=== PATIENT | male | born 1965 | race Two or more races ===

== ENCOUNTER 2019-02-11 20:10 | Emergency (ER) | payer MEDICAID ==
[~2019-02-11] VITALS: Ht 170.2 cm; Wt 63.7 kg
[2019-02-11] MEDS ORDERED: IBUPROFEN 600 MG TAB PO ONE (21:15)
[2019-02-11 21:46] LABS: Basophils # (auto) 0.1 uL; Basophils % (auto) 0.4 % (0.0-2.0); Eosinophils # (auto) 1.1 uL; Eosinophils % (auto) 7.7 % (0.0-7.0); Hematocrit 27.9 % (41.0-53.0); Hemoglobin 9.5 g/dL (13.5-17.5); Lymphocytes # (auto) 0.7 uL; Lymphocytes % (auto) 5.2 % (10.0-50.0); Mean Corpuscular Hemoglobin 29.3 pg (28.0-32.0); Mean Corpuscular Volume 86.3 fL (80.0-100.0); Monocytes # (auto) 0.9 uL; Monocytes % (auto) 6.3 % (0.0-12.0); Neutrophils # (auto) 11.1 uL; Neutrophils % (auto) 80.4 % (37.0-80.0); Platelet Count (auto) 301 10^3/uL (140-450); Red Blood Cells 3.24 10^6/uL (4.5-5.90); Red Cell Distribution Width 12.8 % (11.8-14.3); White Blood Cell 13.9 10^3/uL (4.4-10.8)
[2019-02-11 22:00] LABS: Albumin 2.4 g/dL (3.4-5.0); Anion Gap 8 (5-15); BUN/Creatinine Ratio 12.7; Blood Urea Nitrogen 30 mg/dL (7-18); Calcium 7.4 mg/dL (8.5-10.1); Carbon Dioxide 22 mmol/L (21-32); Chloride 99 mmol/L (98-107); GFR African American 37 mL/min; GFR Non-African American 30 mL/min; Glucose 159 mg/dL (74-106); Sodium 129 mmol/L (136-145)
[2019-02-11 22:05] LABS: Alanine Aminotransferase 20 U/L (16-61); Alkaline Phosphatase 95 U/L (45-117); Aspartate Aminotransferase 15 U/L (15-37); Bilirubin, Total 0.3 mg/dL (0.2-1.0); Total Protein 7.4 g/dL (6.4-8.2)
[2019-02-12] MEDS ORDERED: VANCOMYCIN 1GM/250ML 250 ML IV ONE (02:30)
[2019-02-12] MEDS ORDERED: PIPERACILLIN-TAZOB 3.375GM 100 ML IV ONE (02:30)
[2019-02-12 07:30] VITALS: BP 150/69
== END 2019-02-12 07:55 | disposition short-term general hospital (02) ==
LOC: ER 20:24
DX: L03.116 Cellulitis of left lower limb (principal); E11.52 Type 2 diabetes mellitus with diabetic peripheral angiopathy with gangrene; I96 Gangrene, not elsewhere classified; E11.65 Type 2 diabetes mellitus with hyperglycemia; D72.829 Elevated white blood cell count, unspecified; N28.9 Disorder of kidney and ureter, unspecified; I10 Essential (primary) hypertension
CPT/HCPCS: 36415; 71045; 73700; 80053; 82962; 83605; 84484; 85025; 87040; 87077; 87186; 93005; 96365; 96367; 99285; J2543; J3370; J7030

== ENCOUNTER 2019-03-07 14:57 | Emergency (ER) | payer MEDICAID ==
[~2019-03-07] VITALS: Ht 170.2 cm; Wt 84.4 kg
[2019-03-07 15:13] VITALS: BP 167/85
[2019-03-07] MEDS ORDERED: LIDOCAINE 1% HCL (LOCAL ANESTH.) INJ 20ML MDV IJ ONE (17:00)
== END 2019-03-07 17:41 | disposition home or self-care (01) ==
LOC: ER 14:57
DX: S61.411A Laceration without foreign body of right hand, initial encounter (principal); S51.811A Laceration without foreign body of right forearm, initial encounter; E11.9 Type 2 diabetes mellitus without complications; I10 Essential (primary) hypertension; W54.0XXA Bitten by dog, initial encounter; Y93.89 Activity, other specified; Y92.89 Other specified places as the place of occurrence of the external cause; Y99.8 Other external cause status
CPT/HCPCS: 12004; 73090; 73130; 99284; J2001

== ENCOUNTER 2019-03-10 11:37 | Emergency (ER) | payer MEDICAID ==
[~2019-03-10] VITALS: Ht 170.2 cm; Wt 85.3 kg
[2019-03-10] MEDS ORDERED: KETOROLAC TROMETH 60MG/2ML VIAL IM ONE (15:00)
[2019-03-10] MEDS ORDERED: METHOCARBAMOL 500 MG TAB PO ONE (15:00)
[2019-03-10 15:31] VITALS: BP 144/87
== END 2019-03-10 15:31 | disposition home or self-care (01) ==
LOC: ER 11:37
DX: S61.411D Laceration without foreign body of right hand, subsequent encounter (principal); E11.9 Type 2 diabetes mellitus without complications; I10 Essential (primary) hypertension; W54.0XXD Bitten by dog, subsequent encounter

== ENCOUNTER 2019-03-23 14:31 | Emergency (ER) | payer MEDICAID ==
[~2019-03-23] VITALS: Ht 170.2 cm; Wt 81.6 kg
[2019-03-23 16:36] VITALS: BP 147/77
[2019-03-23] MEDS ORDERED: BACITRACIN TOP OINT 1 UD PKG TOP ONE (16:42)
[2019-03-23] MEDS ORDERED: BACITRACIN INJ 50000 UNIT VIAL TOP ONE (16:45)
== END 2019-03-23 17:01 | disposition home or self-care (01) ==
LOC: ER 14:36
DX: L03.113 Cellulitis of right upper limb (principal); E11.9 Type 2 diabetes mellitus without complications; I10 Essential (primary) hypertension; Z48.02 Encounter for removal of sutures

== ENCOUNTER 2020-10-18 16:14 | Emergency (ER) | payer MEDICAID ==
[~2020-10-18] VITALS: Ht 170.2 cm; Wt 85.3 kg
[2020-10-18 18:25] LABS: Hematocrit 32.4 % (41.0-53.0); Hemoglobin 11.2 g/dL (13.5-17.5); Mean Corpuscular Hemoglobin 29.5 pg (28.0-32.0); Mean Corpuscular Hgb Conc. 34.7 g/dL (32.0-36.0); Mean Corpuscular Volume 85.3 fL (80.0-100.0); Platelet Count (auto) 186 10^3/uL (140-450); Red Cell Distribution Width 14.6 % (11.8-14.3); White Blood Cell 10.6 10^3/uL (4.4-10.8)
[2020-10-18 18:41] LABS: Albumin 3.2 g/dL (3.4-5.0); Calcium 8.5 mg/dL (8.5-10.1); Potassium 4.1 mmol/L (3.5-5.1)
[2020-10-18 18:43] LABS: BUN/Creatinine Ratio 17.9
[2020-10-18 18:48] LABS: Basophils % (manual) 0 (0.0-2.0); Blast Cells 0; Metamyelocytes % 0; Promyelocytes % 0; Reactive Lymphocytes 0
[2020-10-18 18:54] LABS: Bilirubin, Total 0.3 mg/dL (0.2-1.0); Total Protein 7.5 g/dL (6.4-8.2)
[2020-10-18 19:42] LABS: Band Neutrophils % (manual) 2; Eosinophils % (manual) 28 (0-7); Lymphocytes % (manual) 15 (10.0-50.0); Monocytes % (manual) 5 (0-12); Myelocytes % 1
[2020-10-18 20:00] VITALS: BP 169/85
== END 2020-10-18 20:06 | disposition home or self-care (01) ==
LOC: ER 16:14
DX: L03.115 Cellulitis of right lower limb (principal); E11.22 Type 2 diabetes mellitus with diabetic chronic kidney disease; I12.9 Hypertensive chronic kidney disease with stage 1 through stage 4 chronic kidney disease, or unspecified chronic kidney disease; N18.9 Chronic kidney disease, unspecified
CPT/HCPCS: 36415; 73700; 80053; 85007; 85027; 85049

== ENCOUNTER 2021-04-24 13:12 | Inpatient (IN) | payer MEDICAID ==
[~2021-04-24] VITALS: Ht 170.2 cm; Wt 80.4 kg
[2021-04-24 13:47] LABS: Hematocrit 31.1 % (41.0-53.0); Hemoglobin 10.6 g/dL (13.5-17.5); Mean Corpuscular Hemoglobin 28.4 pg (28.0-32.0); Mean Corpuscular Hgb Conc. 33.9 g/dL (32.0-36.0); Mean Corpuscular Volume 83.7 fL (80.0-100.0); Red Blood Cells 3.72 10^6/uL (4.5-5.90); Red Cell Distribution Width 13.6 % (11.8-14.3); White Blood Cell 9.9 10^3/uL (4.4-10.8)
[2021-04-24 14:04] LABS: Basophils % (manual) 0 (0.0-2.0); Blast Cells 0; Metamyelocytes % 0; Myelocytes % 0; Promyelocytes % 0; Reactive Lymphocytes 0
[2021-04-24 14:07] LABS: Albumin 2.4 g/dL (3.4-5.0); Calcium 8.2 mg/dL (8.5-10.1); Potassium 4.8 mmol/L (3.5-5.1)
[2021-04-24 14:15] LABS: Bilirubin, Total 0.3 mg/dL (0.2-1.0); Total Protein 6.7 g/dL (6.4-8.2)
[2021-04-24 14:35] LABS: Band Neutrophils % (manual) 1; Lymphocytes % (manual) 14 (10.0-50.0); Monocytes % (manual) 9 (0-12)
[2021-04-24 14:36] LABS: Eosinophils % (manual) 11 (0-7)
[2021-04-24] MEDS ORDERED: VANCOMYCIN 1GM/250ML 250 ML IV ONE (17:15)
[2021-04-24] MEDS ORDERED: SODIUM CHLORIDE 0.9% 500 ML IV ONE (17:15)
[2021-04-24] MEDS ORDERED: ACETAMINOPHEN 325 MG TAB PO PRN (17:45)
[2021-04-24] MEDS ORDERED: ONDANSETRON HCL 4 MG/2 ML VIAL IV PRN (17:45)
[2021-04-24] MEDS ORDERED: MORPHINE SULFATE INJECTION 2 MG/ML SYRG IV PRN (17:45)
[2021-04-24] MEDS ORDERED: VANCOMYCIN PER PHARMACY 0 MG IV SCH (17:45)
[2021-04-24] MEDS ORDERED: CEFEPIME 2 GM in SODIUM CHL 0.9% 50 ML IV ONE (18:15)
[2021-04-24 20:21] LABS: INR 1.08 (0.9-1.15); Partial Thromboplastin Time 32.6 sec (23.6-33.0)
[2021-04-24 22:34] VITALS: BP 143/76
[2021-04-24] MEDS: VANCOMYCIN 1GM/250ML 250 ML IV SCH (23:16)
[2021-04-25] VITALS (11 sets, daily range): BP systolic 133–165; BP diastolic 18–91
[2021-04-25] MEDS ORDERED: INFLUENZA QUAD 2021-2022 0.5 ML SYRG IM ONE (01:30)
[2021-04-25] MEDS ORDERED: CLON0.1T PO (02:12)
[2021-04-25] MEDS ORDERED: INSU1INJ19 SC (02:12)
[2021-04-25] MEDS ORDERED: ATOR20TA50 PO (02:12)
[2021-04-25] MEDS ORDERED: INSU100I26 SC (02:12)
[2021-04-25] MEDS ORDERED: [UNRECOGNIZED DRUG - CODE] PO (02:12)
[2021-04-25] MEDS ORDERED: LISI-716 PO (02:12)
[2021-04-25 05:41] LABS: Basophils # (auto) 0.1 10 ^3/uL (0-0.2); Basophils % (auto) 1.1 % (0.0-2.0); Eosinophils # (auto) 1.4 10 ^3/uL (0-0.8); Eosinophils % (auto) 14.6 % (0.0-7.0); Hematocrit 28.2 % (41.0-53.0); Hemoglobin 9.8 g/dL (13.5-17.5); Lymphocytes # (auto) 1.7 10 ^3/uL (0.4-5.4); Lymphocytes % (auto) 17.8 % (10.0-50.0); Mean Corpuscular Hemoglobin 28.9 pg (28.0-32.0); Mean Corpuscular Hgb Conc. 34.8 g/dL (32.0-36.0); Mean Corpuscular Volume 83.1 fL (80.0-100.0); Monocytes # (auto) 0.6 10 ^3/uL (0-1.3); Monocytes % (auto) 6.6 % (0.0-12.0); Neutrophils # (auto) 5.6 10 ^3/uL (1.6-8.6); Neutrophils % (auto) 59.9 % (37.0-80.0); Red Cell Distribution Width 13.6 % (11.8-14.3); White Blood Cell 9.3 10^3/uL (4.4-10.8)
[2021-04-25 06:07] LABS: BUN/Creatinine Ratio 14.8; Calcium 8.7 mg/dL (8.5-10.1)
[2021-04-25] MEDS: cefTRIAXone 1GM/50ML D5W 50 ML IV SCH (09:49)
[2021-04-25] MEDS ORDERED: SODIUM CHLORIDE 0.9% 1,000 ML IV SCH (11:15)
[2021-04-25] MEDS ORDERED: LIDOCAINE 2%HCL (LOCAL ANESTH.) INJ 20ML MDV ONE (12:23)
[2021-04-25] MEDS ORDERED: IODIXANOL 320MG/ML 100ML BTL IV ONE ×2 (12:23→12:43)
[2021-04-25] MEDS ORDERED: fentaNYL CITRATE 100 MCG/2 ML VL ONE (12:27)
[2021-04-25] MEDS ORDERED: MIDAZOLAM HCL 2MG/2ML 2ml VIAL (1mg/ml) ONE (12:28)
[2021-04-25] MEDS ORDERED: SODIUM CHL 0.9% 50 ML ONE (12:30)
[2021-04-25] MEDS ORDERED: ANGIOMAX 250 MG VIAL IV ONE (12:30)
[2021-04-25] MEDS ORDERED: NITROGLYCERIN 0.4MG/DOSE SPRAY 4.9GM ONE (13:28)
[2021-04-25] MEDS ORDERED: SODIUM CHLORIDE 0.9% 500 ML IV ONE (15:00)
[2021-04-25] MEDS: VANCOMYCIN 1GM/250ML 250 ML IV SCH ×2 (22:09→23:39)
[2021-04-25] MEDS: ATORVASTATIN 20 MG TAB PO SCH (22:12)
[2021-04-26 05:00] VITALS: BP 134/68
[2021-04-26 08:00] VITALS: BP 148/66
[2021-04-26] MEDS: ASPirin 81 mg TAB PO SCH (09:17)
[2021-04-26] MEDS: cefTRIAXone 1GM/50ML D5W 50 ML IV SCH (09:17)
[2021-04-26] MEDS ORDERED: ceFAZolin 1GM VL ONE (09:25)
[2021-04-26] MEDS ORDERED: ROPIVACAINE 0.5% (5MG/ML) 20ML AMPULE IJ ONE (09:25)
[2021-04-26] MEDS ORDERED: METOCLOPRAMIDE HCL 5MG/ml INJ 2ml VIAL IV PRN (11:00)
[2021-04-26] MEDS ORDERED: ACCU-CHEK COMFORT CURVE STRIP VI ONE (11:00)
[2021-04-26] MEDS ORDERED: MORPHINE SULFATE 4 MG/ML SYR/VIAL IV PRN (11:00)
[2021-04-26 11:52] VITALS: BP 161/87
[2021-04-26] MEDS ORDERED: ceFAZolin 1GM/50ML 100 ML IV ONE (12:47)
[2021-04-26] MEDS ORDERED: MIDAZOLAM HCL 2MG/2ML 2ml VIAL (1mg/ml) ONE (12:58)
[2021-04-26] MEDS ORDERED: ONDANSETRON HCL 4 MG/2 ML VIAL ONE (12:58)
[2021-04-26] MEDS ORDERED: fentaNYL CITRATE 100 MCG/2 ML VL ONE (12:58)
[2021-04-26] MEDS ORDERED: PROPOFOL 10 MG/ML 20 ML IV ONE (12:58)
[2021-04-26] MEDS: HYDROmorphone HCL 2 MG/ML VL IV PRN ×2 (13:40→13:54)
[2021-04-26] MEDS ORDERED: HYDROmorphone HCL 2 MG/ML VL ONE (13:40)
[2021-04-26 16:00] VITALS: BP 141/80
[2021-04-26] MEDS ORDERED: LIDOCAINE 1% (LOCAL ANESTH.) PF 5ml SDV ID ONE (17:30)
[2021-04-26] MEDS ORDERED: ASPI1CHW15 PO (18:42)
[2021-04-26] MEDS ORDERED: VANC1000 IV (18:42)
[2021-04-26] MEDS ORDERED: HYDR-4902 PO (18:42)
[2021-04-26] MEDS ORDERED: CEFT1INJ6 IV (18:42)
[2021-04-26] MEDS ORDERED: RIVA2.5T PO (18:42)
[2021-04-26 21:27] VITALS: BP 135/76
[2021-04-26] MEDS: ATORVASTATIN 20 MG TAB PO SCH (22:00)
[2021-04-26] MEDS: SODIUM CHLOR 0.9% PF (SALINE LOCK) 10ML VIAL/SYR IV SCH (22:00)
[2021-04-27 05:42] VITALS: BP 145/79
[2021-04-27 08:00] VITALS: BP_SYST 142; BP_SYST 145; BP_DIAS 78
[2021-04-27] MEDS: cefTRIAXone 1GM/50ML D5W 50 ML IV SCH (09:53)
[2021-04-27] MEDS: ASPirin 81 mg TAB PO SCH (09:54)
[2021-04-27] MEDS: SODIUM CHLOR 0.9% PF (SALINE LOCK) 10ML VIAL/SYR IV SCH ×2 (10:00→23:03)
[2021-04-27 12:00] VITALS: BP 134/78
[2021-04-27 16:00] VITALS: BP 154/77
[2021-04-27 21:43] VITALS: BP 124/65
[2021-04-27] MEDS: VANCOMYCIN 1GM/250ML 250 ML IV SCH ×2 (22:26→23:02)
[2021-04-27] MEDS: ATORVASTATIN 20 MG TAB PO SCH (22:56)
[2021-04-29] MEDS ORDERED: RIVAROXABAN 10 MG TAB PO SCH (08:00)
== END 2021-04-27 22:20 | disposition home health service (06) | DRG 314 ==
LOC: ER 13:12 → OVERFLOW 17:42 → WEST WING 21:53
PROVIDERS: ADMIT Internal Medicine; ATTEND Internal Medicine
PROC: 047N3ZZ Dilation of Left Popliteal Artery, Percutaneous Approach (ICD-10-PCS; principal; 2021-04-25)
PROC: 047S3ZZ Dilation of Left Posterior Tibial Artery, Percutaneous Approach (ICD-10-PCS; 2021-04-25)
PROC: 04FN3ZZ Fragmentation of Left Popliteal Artery, Percutaneous Approach (ICD-10-PCS; 2021-04-25)
PROC: B41GYZZ Fluoroscopy of Left Lower Extremity Arteries using Other Contrast (ICD-10-PCS; 2021-04-25)
PROC: 0Y6P0Z0 Detachment at Right 1st Toe, Complete, Open Approach (ICD-10-PCS; 2021-04-26)
DX: E11.69 Type 2 diabetes mellitus with other specified complication (principal); L97.509 Non-pressure chronic ulcer of other part of unspecified foot with unspecified severity; E11.22 Type 2 diabetes mellitus with diabetic chronic kidney disease; E11.51 Type 2 diabetes mellitus with diabetic peripheral angiopathy without gangrene; L03.031 Cellulitis of right toe; N18.9 Chronic kidney disease, unspecified; E03.9 Hypothyroidism, unspecified; E11.65 Type 2 diabetes mellitus with hyperglycemia; E78.5 Hyperlipidemia, unspecified; Z20.822 Contact with and (suspected) exposure to COVID-19; I12.9 Hypertensive chronic kidney disease with stage 1 through stage 4 chronic kidney disease, or unspecified chronic kidney disease; M86.8X7 Other osteomyelitis, ankle and foot
CPT/HCPCS: 36415; 36569; 37228; 71045; 73700; 75710; 80048; 80053; 80202; 82962; 85007; 85025; 85027; 85610; 85730; 87070; 87075; 87077; 87186; 87205; 87426; 90686; 93926; 96365; 97163; 99152; 99153; G0378; J0690; J0696; J2250; J2405; J2704; Q9967

== ENCOUNTER 2021-06-03 09:48 | Emergency (ER) | payer MEDICAID ==
[~2021-06-03] VITALS: Ht 170.2 cm; Wt 85.3 kg
[~2021-06-03 09:48] MED LIST: ASPI1CHW15 PO; ATOR20TA50 PO; CEFT1INJ6 IV; CLON0.1T PO; HYDR-4902 PO; INSU100I26 SC; INSU1INJ19 SC; LISI-716 PO; RIVA2.5T PO; VANC1000 IV; [UNRECOGNIZED DRUG - CODE] PO
[2021-06-03 10:46] LABS: INR 1.1 (0.9-1.15); Partial Thromboplastin Time 30.8 sec (23.6-33.0)
[2021-06-03 11:15] LABS: Basophils # (auto) 0.2 10 ^3/uL (0-0.2); Eosinophils # (auto) 0.8 10 ^3/uL (0-0.8); Lymphocytes # (auto) 1.3 10 ^3/uL (0.4-5.4); Lymphocytes % (auto) 13.2 % (10.0-50.0); White Blood Cell 9.7 10^3/uL (4.4-10.8)
[2021-06-03 11:16] LABS: Basophils % (auto) 1.8 % (0.0-2.0); Eosinophils % (auto) 8.2 % (0.0-7.0); Hematocrit 29.6 % (41.0-53.0); Mean Corpuscular Hemoglobin 27.5 pg (28.0-32.0); Mean Corpuscular Hgb Conc. 33.9 g/dL (32.0-36.0); Monocytes # (auto) 0.7 10 ^3/uL (0-1.3); Monocytes % (auto) 7.4 % (0.0-12.0); Neutrophils # (auto) 6.8 10 ^3/uL (1.6-8.6); Neutrophils % (auto) 69.4 % (37.0-80.0); Red Blood Cells 3.65 10^6/uL (4.5-5.90); Red Cell Distribution Width 15.1 % (11.8-14.3)
[2021-06-03 11:34] LABS: Albumin 2.6 g/dL (3.4-5.0); BUN/Creatinine Ratio 11.9; Calcium 8.5 mg/dL (8.5-10.1); Potassium 4.8 mmol/L (3.5-5.1)
[2021-06-03 11:37] LABS: Bilirubin, Total 0.2 mg/dL (0.2-1.0); Total Protein 6.8 g/dL (6.4-8.2)
[2021-06-03 12:28] VITALS: BP 162/84
== END 2021-06-03 12:34 | disposition home or self-care (01) ==
LOC: ER 09:48
DX: T82.594A Other mechanical complication of infusion catheter, initial encounter (principal); E11.21 Type 2 diabetes mellitus with diabetic nephropathy; E11.65 Type 2 diabetes mellitus with hyperglycemia; I10 Essential (primary) hypertension; D75.839 Thrombocytosis, unspecified; D53.9 Nutritional anemia, unspecified; E46 Unspecified protein-calorie malnutrition; Z68.29 Body mass index [BMI] 29.0-29.9, adult; E11.22 Type 2 diabetes mellitus with diabetic chronic kidney disease; I12.9 Hypertensive chronic kidney disease with stage 1 through stage 4 chronic kidney disease, or unspecified chronic kidney disease; N18.9 Chronic kidney disease, unspecified; Z79.4 Long term (current) use of insulin; Z79.2 Long term (current) use of antibiotics; Z79.82 Long term (current) use of aspirin; Z79.899 Other long term (current) drug therapy
CPT/HCPCS: 36415; 80053; 85025; 85610; 85730

== ENCOUNTER 2023-02-09 18:14 | Emergency (ER) | payer MEDICAID ==
[~2023-02-09] VITALS: Ht 170.2 cm; Wt 90.9 kg
[~2023-02-09 18:14] MED LIST changes: +ASPI-736 PO; -ASPI1CHW15 PO; -LISI-716 PO; +LISI10TA34 PO; -VANC1000 IV; +[UNRECOGNIZED DRUG - CODE] IV
[2023-02-09 19:47] LABS: Basophils # (auto) 0.1 10 ^3/uL (0-0.2); Basophils % (auto) 0.6 % (0.0-2.0); Eosinophils # (auto) 1.1 10 ^3/uL (0-0.8); Eosinophils % (auto) 11.1 % (0.0-7.0); Hematocrit 35.5 % (41.0-53.0); Hemoglobin 12.3 g/dL (13.5-17.5); Lymphocytes # (auto) 1.5 10 ^3/uL (0.4-5.4); Lymphocytes % (auto) 15.5 % (10.0-50.0); Mean Corpuscular Hemoglobin 30.3 pg (28.0-32.0); Mean Corpuscular Hgb Conc. 34.7 g/dL (32.0-36.0); Mean Corpuscular Volume 87.3 fL (80.0-100.0); Monocytes # (auto) 0.5 10 ^3/uL (0-1.3); Monocytes % (auto) 5.4 % (0.0-12.0); Neutrophils # (auto) 6.4 10 ^3/uL (1.6-8.6); Neutrophils % (auto) 67.4 % (37.0-80.0); Red Blood Cells 4.07 10^6/uL (4.5-5.90); Red Cell Distribution Width 15.6 % (11.8-14.3); White Blood Cell 9.5 10^3/uL (4.4-10.8)
[2023-02-09 20:03] LABS: Alanine Aminotransferase 41 U/L (7-40); Albumin 4.3 g/dL (3.2-4.8); Alkaline Phosphatase 117 U/L (46-116); Anion Gap 5 (5-15); Aspartate Aminotransferase 19 U/L (13-40); BUN/Creatinine Ratio 10.9 (10.0-20.0); Blood Urea Nitrogen 20 mg/dL (9-23); Calcium 8.9 mg/dL (8.7-10.4); Carbon Dioxide 23 mmol/L (20-30); Chloride 103 mmol/L (98-107); Glucose 150 mg/dL (74-106); Lipase 78 U/L (12-53); Sodium 131 mmol/L (136-145)
[2023-02-09 20:04] LABS: Total Protein 6.6 g/dL (5.7-8.2)
[2023-02-09 20:14] LABS: INR 1.06 (0.9-1.15); Prothrombin Time 11.1 sec (9.3-11.8)
[2023-02-09 22:37] VITALS: BP 183/84; PULSE 90; RESP 18; TEMP 98; O2SAT 96
[2023-02-11 11:21] LABS: Free T4 (Free Thyroxine) 1.55 ng/dL (0.89-1.76)
[2023-02-21 12:17] LABS: Free T3 2.95 pg/mL (2.3-4.2)
== END 2023-02-09 21:12 | disposition home or self-care (01) ==
LOC: EDBD 18:14 → ER 18:14
DX: H33.22 Serous retinal detachment, left eye (principal); H35.62 Retinal hemorrhage, left eye; E11.22 Type 2 diabetes mellitus with diabetic chronic kidney disease; I12.9 Hypertensive chronic kidney disease with stage 1 through stage 4 chronic kidney disease, or unspecified chronic kidney disease; N18.9 Chronic kidney disease, unspecified; E78.5 Hyperlipidemia, unspecified
CPT/HCPCS: 36415; 70450; 71045; 80053; 83690; 84439; 84443; 84481; 84484; 85025; 85610